=== PATIENT | female | born 1975 | race Caucasian/White ===

== ENCOUNTER 2021-06-25 14:57 | Outpatient (CLI) | payer BC, SELFPAY ==
--- NOTE | 2021-06-25 15:03 | MM_ITS ---
WS: [id number] Bilateral screening 3D tomosynthesis digital mammogram, 06/25/2021 Clinical Data: SCREENING Comparison: None. Findings: The breast parenchymal pattern shows fibroglandular tissue. No spiculated masses or clustered calcifi cations are seen. There are no secondary signs of carcinoma. MM/[id number] Impression: 1. Negative bilateral mammogram with no prior exam for review. 2. Recommend annual screening mammograms. BIRADS: 1-Negative FOLLOW UP: 1 Year Follow-up The CAD material checker was used.
== END 2021-06-25 14:58 | disposition home or self-care (01) ==
PROVIDERS: Family Provider Family Medicine; PCP Family Medicine; Visit Provider Family Medicine
DX: Z12.31 Encounter for screening mammogram for malignant neoplasm of breast (principal)
CPT/HCPCS: 77063; 77067

== ENCOUNTER 2022-07-27 17:46 | Emergency (ER) | payer OTHER, SELFPAY ==
[2022-07-27 17:52] VITALS: BP 162/92; PULSE 97; RESP 14; TEMP 36.7; O2SAT 96; BMI 40.7
--- NOTE | 2022-07-27 18:00 | CTR_ITS ---
PROCEDURE INFORMATION: Exam: CT Head Without Contrast Exam date and time: 07/27/2022 6:16 PM Age: 47 years old Clinical indication: Weakness, facial; Additional info: Right sided facial droop TECHNIQUE: Imaging protocol: Computed tomography of the head without contrast. Axial, coronal and sagittal reformatted images were created and reviewed. Radiation optimization: All CT scans at this facility use at least one of these dose optimization techniques: automated exposure control; mA and/or kV adjustment per patient size (includes targeted exams where dose is matched to clinical indication); or iterative reconstruction. REPORTING DATA: Count of CT and Cardiac NM exams in prior 12 months: This patient has received 0 known CTs and 0 known cardiac nuclear medicine studies in the 12 months prior to the current study. COMPARISON: No relevant prior studies available. RADIATION DOSE METRICS: Total DLP (mGy-cm): 1097.78 FINDINGS: Brain: No CT evidence of acute intracranial hemorrhage or acute territorial infarction. No significant mass effect or midline shift. Basal cisterns patent. Cerebral ventricles: Normal in size and configuration. Paranasal sinuses: Right sphenoid sinus polyp versus mucous retention cyst. No air-fluid levels. Mastoid air cells: Grossly unremarkable. Bones/joints: No acute osseous abnormality. Soft tissues: Grossly unremarkable. CT/CT head wo con* [id number]: 1[address] No CT evidence of acute intracranial pathology. 2. Additional findings, as above.
--- NOTE | 2022-07-27 19:58 | W.ED.NEUROSD ---
HPI - Neuro Symptoms/Deficit General: Chief Complaint: Neuro Symptoms/Deficit Stated Complaint: Stroke like symptoms Time Seen by Provider: 07/27/22 18:02 Source: patient Mode of arrival: ambulatory Limitations: no limitations History of Present Illness: 47-year-old female states that she had left-sided facial droop she had noticed this morning. 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 She does have some left-sided jaw pain and states she has been very distressed at work. Denies any chest pain. Associated symptoms: Deny chest pain, headache(s), nausea or vomiting Review of Systems Const: Denies: fever(s), chills or body aches Eyes: Denies: blurry vision or eye discomfort ENMT: Denies: throat pain or dental pain Card: Denies: chest pain Resp: Denies: dyspnea GI: Denies: abdominal pain, nausea, vomiting or diarrhea Musc: Denies: neck pain or back pain Skin/Breast: Denies: rash Neuro: Denies: headache(s) Physical Exam Const: COMMON NORMALS: no acute distress, patient oriented x3 and healthy appearing HENMT: COMMON NORMALS: normocephalic, atraumatic, external ears normal and TM's normal bilaterally HEAD & SCALP: normocephalic and atraumatic EXTERNAL EAR: Yes external ears normal TYMPANIC MEMBRANE: TM's normal bilaterally OTHER: Tenderness over left TMJ also tenderness to left pterygoid Eye: COMMON NORMALS: Equal, round and reactive pupils present and EOMs intact bilaterally PUPIL: Yes Equal, round and reactive pupils present Neck/C-Spine: COMMON NORMALS: full ROM and supple Chest: COMMONS NORMALS: normal inspection of the chest Resp: COMMON NORMALS: normal respiratory effort, No retractions, No use of accessory muscles and clear to auscultation bilaterally AUSCULTATION: clear to auscultation bilaterally Cardio: COMMON NORMALS: regular rate, regular rhythm and No murmurs present (Cardio) RATE: regular rate RHYTHM: regular rhythm Extremity: COMMON NORMALS: normal to inspection and full ROM Neuro: COMMON NORMALS: patient oriented x3 and moves all extremities GAIT: Yes Normal gait present MOTOR EXAM: 5/5 motor strength present throughout OTHER: Left-sided facial palsy Psych: COMMON NORMALS: mental status grossly normal, Normal thought process present and cooperative THOUGHT PROCESS: Normal thought process present Skin: COMMON NORMALS: no rashes or lesions noted and no wounds GENERAL SKIN EXAM: no rashes or lesions noted Course Vital Signs: Vital signs: Vital Signs Temperature 98.0 F 07/27/22 17:52 Pulse Rate 84 07/27/22 20:12 Respiratory Rate 18 07/27/22 20:12 Blood Pressure 139/86 07/27/22 20:12 Pulse Oximetry 94 07/27/22 20:12 Oxygen Delivery Me thod Room Air 07/27/22 17:52 MDM - Neuro Symptoms/Deficit Medical Decision Making Patient presents with Horvath's palsy she has no signs of a stroke she does have a dense left-sided Horvath's palsy she is already on acyclovir and prednisone she is to use eye moisturizing drops and is to tape her eye shut at night. She does have some left-sided jaw pain states she is very stressed at work she grinds her teeth likely TMJ we will place her on anti-inflammatory. Medical Records I reviewed the patient's medical records. Lab Data Radiology Impressions Head CT 07/27/22 18:[address]: [address] evidence of acute intracranial pathology. 2. Additional findings, as above. Discharge Plan Discharge Patient Disposition: Home Clinical Impression: Horvath's palsy, TMJ arthralgia Condition: Stable Prescriptions: New Naprosyn 500 mg tablet 500 mg PO BID PRN (Reason: pain) Qty: 20 0RF Discharge Orders: Discharge ED (Routine); Ordered 07/27/22 Ordered By: Lakeshia Marie Referrals: Ge Butler MD [Primary Care Provider] - 1-3 days Discharge Diet: Advance as tolerated Discharge Activity: Resume usual activity Patient Instructions: Horvath Palsy (ED), Temporomandibular Disorder (ED) Coding Level of Care Code ED Back Grinder for Nicki Hernandez
[2022-07-27 20:00] VITALS: BP 153/94; O2SAT 92
[2022-07-27] MEDS: naproxen 500 mg Tablet PO (20:10)
[2022-07-27 20:12] VITALS: BP 139/86; PULSE 84; RESP 18; O2SAT 94
== END 2022-07-27 20:15 | disposition home or self-care (01) ==
PROVIDERS: Emergency Provider Emergency Medicine; PCP Family Medicine
DX: G51.0 Bell's palsy (principal); M26.609 Unspecified temporomandibular joint disorder, unspecified side
CPT/HCPCS: 70450; 99284

== ENCOUNTER 2023-10-12 08:55 | Outpatient (CLI) | payer OTHER, SELFPAY ==
--- NOTE | 2023-10-12 08:57 | MM_ITS ---
WS: [id number] SCREENING DIGITAL BREAST TOMOSYNTHESIS MAMMOGRAM WITH CAD HISTORY: SCREENING COMPARISON: 06/25/2021 Bilateral CC and MLO with tomosynthesis and synthetic mammography submitted. Computer aided detection analyzed. Breast composition: There are scattered areas of fibroglandular density. In the medial posterior RIGH T breast are 2 asymmetries measuring about 7 mm each. These have increased in size since 2021. Not de finitely seen on the lateral projection. Otherwise breasts are negative. No suspicious grouping of ca lcifications. MM/[place] [id number] IMPRESSION: BI-RADS: 0 - Incomplete: Need additional imaging evaluation. FOLLOW UP: Need Additional Imaging RIGHT breast: Spot compression views (CC ). True ML. Ultrasound to follow if ab normality persists.
== END 2023-10-12 08:56 | disposition home or self-care (01) ==
LOC: RAD 08:55
PROVIDERS: PCP Family Medicine; Visit Provider Family Medicine
DX: Z12.31 Encounter for screening mammogram for malignant neoplasm of breast (principal); R92.323 Mammographic fibroglandular density, bilateral breasts; N64.89 Other specified disorders of breast
CPT/HCPCS: 77063; 77067

== ENCOUNTER 2023-12-20 10:19 | Outpatient (CLI) | payer OTHER, SELFPAY ==
--- NOTE | 2023-12-20 10:21 | MM_ITS ---
WS: [id number] ADDITIONAL VIEWS RIGHT MAMMOGRAM WITH DIGITAL BREAST TOMOSYNTHESIS. RIGHT BREAST ULTRASOUND HISTORY: INCONCLUSIVE MAMMOGRAM COMPARISON: 10/12/2023, 06/25/2021 RIGHT MAMMOGRAM: Spot compression views and true ML with digital breast tomosynthesis and SM. The asymmetry seen in the medial posterior RIGHT breast are reidentified. 1 of these asymmetries is t owards 2:00. The other is closer to 4-5 o'clock. Both asymmetries measure approximately 6 to 7 mm. Th danielito are very similar to the adjacent breast tissue. There is no distortion or calcification. RIGHT BREAST ULTRASOUND 2-D and color Doppler imaging submitted. Nodular asymmetry noted within the RIGHT breast identified by ultrasound. Favor these are probably no rmal patches of fibroglandular breast tissue. MM/MM diag RT tomosynthesis [id number] IMPRESSION: BI-RADS: 3- Probably Benign FOLLOW UP: 6 Month Follow-up Recommend diagnostic RIGHT mammogram imaging in 6 months. Favor the asymmetries noted in the RIGHT breast are probably normal patches of fibroglandular tissue . No corresponding finding seen on ultrasound. Recommend additional 6-month fol low-up to confirm no change and stability.
== END 2023-12-20 10:20 | disposition home or self-care (01) ==
LOC: RAD 10:20
PROVIDERS: PCP Family Medicine; Visit Provider Family Medicine
DX: R92.2 Inconclusive mammogram (principal); N64.89 Other specified disorders of breast; R92.1 Mammographic calcification found on diagnostic imaging of breast
CPT/HCPCS: 76642; 77061; G0279